=== PATIENT | male | born 1940 | race Caucasian/White ===

== ENCOUNTER 2020-01-24 18:35 | Inpatient (IN) | payer MEDICAID, MEDICARE, SELFPAY ==
[~2020-01-24] VITALS: Ht 185.4 cm; Wt 71.7 kg
[2020-01-24 18:35] VITALS: BP 124/51
--- NOTE | 2020-01-24 18:37 | NUR ---
PT IS A TRANSFER FROM [facility] ([facility] BROUGHT IN FOR ISOLATION OF COVID.
--- NOTE | 2020-01-24 19:05 | NUR ---
79 Y/O MALE BIBA FROM [facility] D/T PT BEING COVID POSITIVE, ASYMPTOMATIC. FACILITY DID NOT HAVE ANY ISOLATION ROOMS, SO THEY STATE THEY CANNOT HOLD PT. RESP EVEN AND UNLABORED. SP02 100% RA. LUNG SOUNDS CLEAR BILAT. AFEBRILE. NO COMPLAINTS AT THIS MOMENT. PT HAS BROCAS APHASIA, BUT ABLE TO COMPREHEND WORDS. NSR. VSS. AAOX4.
--- NOTE | 2020-01-24 19:15 | NUR ---
Pt report given to SIDNEY TAVARES. Transfer of care at this time.
--- NOTE | 2020-01-24 19:16 | NUR ---
recieved report from tavon mayers
--- NOTE | 2020-01-24 20:05 | NUR ---
PT GIVEN SANDWICH AND JUICE
--- NOTE | 2020-01-24 21:14 | NUR ---
PT RESTING AT THIS TIME NO SIGNS OF DISTRESS NOTED
--- NOTE | 2020-01-24 21:16 | NUR ---
MD DELONG AT BEDSIDE TO ASSESS PT
--- NOTE | 2020-01-24 22:00 | NUR ---
DISCHARGE PAPERS GIVEN TO ME BY MD DELONG. CALLED EMERGENCY CONTACT JEWELS AT [phone], SHE LIVES IN [facility] AND IS NOT ABLE TO ASSIST IN TRANSPORT FOR PT. SHE PROVIDED ME HIS COUSINS NUMBER, CALLED YAZMIN AT [phone] AND LEFT [facility]. ADVISED CHARGE NURSE PT HAS NO TRANSPORTATION SHE CONTACTED RN MANAGER TALENT FOR BUS PASS. PT BECAME VERY AGITATED AND REFUSED TO LEAVE WHEN TRYING TO PROVIDE HIM WITH D/C PAPERS AND BUS PASS. MD DELONG WILL NOW ADMIT PT.
[2020-01-24] MEDS ORDERED: DOCUSATE SODIUM 100 MG GELCAP PO PRN (22:40)
[2020-01-24] MEDS ORDERED: ACETAMINOPHEN 325 MG TAB PO PRN (22:40)
[2020-01-24] MEDS ORDERED: MORPHINE SULFATE 2 MG/ML SYR IVP PRN (22:40)
[2020-01-24] MEDS ORDERED: ONDANSETRON 4 MG/2 ML VIAL IM/IVP PRN (22:40)
[2020-01-24] MEDS ORDERED: HYDROcodone/APAP 5/325 MG 1 TAB TAB PO PRN (22:40)
--- NOTE | 2020-01-24 22:49 | NUR ---
Dr. Silva examining patient.
--- NOTE | 2020-01-24 23:20 | NUR ---
PT WILL BE ADMITTED TO [facility]. PER HOUSE INNA ORTIZ PT WILL BE AN ER HOLD FOR THE MEANTIME.
[2020-01-24 23:23] LABS: HEMATOCRIT 24.3 % (36-52); HEMOGLOBIN 7.9 g/dL (12.0-18.0); MEAN CORPUSCULAR HEMOGLOBIN 35 pg (27-31); MEAN CORPUSCULAR HGB CONC 33 g/dL (33-37); MEAN CORPUSCULAR VOLUME 108.5 fL (80-94); PLATELET COUNT (AUTO) 272 K/uL (140-450); RED BLOOD CELL COUNT(AUTO) 2.24 MIL/uL (4.20-6.10); RED CELL DISTRIBUTION WIDTH 16.3 % (11.6-13.7); WHITE BLOOD COUNT (AUTO) 3.5 K/uL (4.8-10.8)
[2020-01-24] MEDS ORDERED: MAG355OR2 PO (23:29)
[2020-01-24] MEDS ORDERED: ATOR10TA PO (23:29)
[2020-01-24] MEDS ORDERED: ARIP5TAB8 PO (23:29)
[2020-01-24] MEDS ORDERED: ESCI10TA PO (23:29)
[2020-01-24] MEDS ORDERED: ATI.5 PO (23:29)
[2020-01-24] MEDS ORDERED: FINA5TAB1 PO (23:29)
[2020-01-24] MEDS ORDERED: ASPI-1884 PO (23:29)
[2020-01-24 23:36] LABS: ANION GAP 10.9 (8-16); CARBON DIOXIDE 29.6 mmol/L (21-32); CHLORIDE 100 mmol/L (98-107); CREATININE 0.8 mg/dL (0.6-1.3); GLUCOSE 98 mg/dL (74-106); POTASSIUM 4.5 mmol/L (3.5-5.1); SODIUM SERUM 136 mmol/L (136-145); UREA NITROGEN, BLOOD 24 mg/dL (7-18)
--- NOTE | 2020-01-24 23:37 | NUR ---
URINE COLLECTED AND TAKEN TO LAB
[2020-01-24 23:41] LABS: LYMPHOCYTES % (MANUAL) 36 % (20-46); MONOCYTES % (MANUAL) 20 % (5-12)
[2020-01-24 23:45] LABS: APPEARANCE,URINE CLEAR (CLEAR); BILIRUBIN,URINE NEGATIVE (NEGATIVE); BLOOD, URINE NEGATIVE (NEGATIVE); COLOR,URINE YELLOW (YELLOW); LEUKOCYTE ESTERASE ,URINE NEGATIVE (NEGATIVE); NITRITE, URINE NEGATIVE (NEGATIVE); UGLUCOSE NEGATIVE (NEGATIVE)
--- NOTE | 2020-01-25 01:59 | NUR ---
PT GIVEN ANOTHER SANDWICH AND JUICE. PT REMAINS ON MONITOR, NO SIGNS OF DISTRESS NOTED, RESPIRATIONS REGULAR, UNLABORED.
--- NOTE | 2020-01-25 02:18 | NUR ---
COVID 19 SWAB DONE AND TAKEN TO LAB
--- NOTE | 2020-01-25 05:14 | NUR ---
PT POINTING TO HIS RIGHT KNEE AND SAYING "OW". ASKED IF HE WAS HAVING PAIN AND HE SAID YES, MEDICATED WITH NORCO PER FLOOR ORDER.
--- NOTE | 2020-01-25 07:25 | NUR ---
RECEIVED REPORT FROM ER NURSE. WITH ADMITTING DX OF ASYMPTOMATIC COVID AND FAILURE TO THRIVE. PT AOX3, WITH EXPRESSIVE APHASIA, ABLE TO COMPREHEND, NO C/O PAIN, NO SOB, RESPIRATIONS ARE EVEN AND UNLABORED. SKIN INTACT. WITH LFA 20G. ISOLATION PRECAUTION OBSERVED. SAFETY PRECAUTIONS IN PLACE. WILL CONTINUE TO MONITOR.
--- NOTE | 2020-01-25 07:28 | NUR ---
Patient will be admitted to care of [facility]. Admited to tele. Will go to room 115. Belongings list completed. Report to brandyn mayers.
[2020-01-25 08:00] VITALS: BP 112/58
[2020-01-25 08:28] LABS: HEMATOCRIT 25.4 % (36-52); HEMOGLOBIN 8.2 g/dL (12.0-18.0); WHITE BLOOD COUNT (AUTO) 3.4 K/uL (4.8-10.8)
--- NOTE | 2020-01-25 08:45 | NUR ---
DUE MEDS GIVEN. TOLERATED PO MEDS WELL
[2020-01-25 08:46] LABS: ANION GAP 10.6 (8-16); CARBON DIOXIDE 30.4 mmol/L (21-32); CHLORIDE 99 mmol/L (98-107); CREATININE 0.8 mg/dL (0.6-1.3); GLUCOSE 86 mg/dL (74-106); SODIUM SERUM 136 mmol/L (136-145); UREA NITROGEN, BLOOD 20 mg/dL (7-18)
[2020-01-25 08:52] LABS: MEAN CORPUSCULAR HEMOGLOBIN 35 pg (27-31); MEAN CORPUSCULAR HGB CONC 32 g/dL (33-37); MEAN CORPUSCULAR VOLUME 109.6 fL (80-94); PHOSPHORUS 3.9 mg/dL (2.5-4.9); PLATELET COUNT (AUTO) 254 K/uL (140-450); RED BLOOD CELL COUNT(AUTO) 2.32 MIL/uL (4.20-6.10); RED CELL DISTRIBUTION WIDTH 16.5 % (11.6-13.7)
[2020-01-25 09:07] LABS: LYMPHOCYTES % (MANUAL) 55 % (20-46); MONOCYTES % (MANUAL) 15 % (5-12)
[2020-01-25] MEDS: ARIPiprazole 10 MG TAB PO SCH (09:41)
[2020-01-25] MEDS: ASPIRIN 81 MG TAB.CHEW PO SCH (09:41)
[2020-01-25] MEDS: ESCITALOPRAM 20 MG TAB PO SCH (09:42)
[2020-01-25] MEDS: FINASTERIDE 5 MG TAB PO SCH (09:42)
--- NOTE | 2020-01-25 11:15 | NUR ---
PT AWAKE IN BED. NO C/O PAIN, NO SOB, RESPIRATIONS ARE EVEN AND UNLABORED, AFEBRILE. WITH EPISODES OF PRESSING CALL LIGHT FOR NO REASON
[2020-01-25 12:00] VITALS: BP 128/64
--- NOTE | 2020-01-25 14:08 | NUR ---
PT AWAKE IN BED WATCHING TV. STILL WITH SEVERAL EPISODES OF PRESSING CALL LIGHT FOR NO REASON. REORIENTATION GIVEN
[2020-01-25] MEDS ORDERED: AZITHROMYCIN 250 MG TAB PO SCH (15:28)
[2020-01-25 16:00] VITALS: BP 142/80
--- NOTE | 2020-01-25 16:30 | NUR ---
FIRST DOSE OF AZITHROMYCIN AND ROCEPHIN GIVEN ORDERED
--- NOTE | 2020-01-25 18:32 | NUR ---
PT AWAKE IN BED WATCHING TV. NO C/O PAIN, NO SOB, AFEBRILE. CALL LIGHT WITHIN REACH. WILL ENDORSE TO NEXT SHIFT FOR CONTINUITY OF CARE
--- NOTE | 2020-01-25 19:22 | NUR ---
RECEIVED PT AAOX1 , EXPRESSIVE APHASIA - HX CVA , CAN FOLLOW COMMANDS , CAN ADDRESS HIS NEED . IV SITE INTACT AND PATENT - ON RA - O2 SAT WNL . SAFETY MEASURES IN PLACE - CALL ASPEN KERN . PLAN OF CARE DISCUSSED AND VERBALIZED FAIR UNDERSTANDING - NEEDS REINFORCEMENT . ON TELE MONITOR , DENIES ANY PAIN WILL CONT. TO MONITOR.
[2020-01-25 20:00] VITALS: BP 130/70
[2020-01-25] MEDS: ATORVASTATIN 20 MG TAB PO SCH (21:00)
--- NOTE | 2020-01-25 22:20 | NUR ---
RESTING ON BED COMFORTABLY NO COMPLAIN MADE .CALL LIGHT WITHIN REACH.
[2020-01-26] VITALS: BP 130/60
--- NOTE | 2020-01-26 | NUR ---
MADE ROUNDS , NO S/SX OF ACUTE DISTRESS NOTED AT THIS TIME . WILL CONT. TO MONITOR.
--- NOTE | 2020-01-26 02:00 | NUR ---
SLEEPING - CHEST RISE AND FALL EQUALLY . WILL CONT. TO MONITOR.
[2020-01-26 04:00] VITALS: BP 125/60
--- NOTE | 2020-01-26 04:00 | NUR ---
MADE ROUNDS , NO S/SX OF ACUTE DISTRESS NOTED AT THIS TIME . CALL LIGHT WITHIN REACH
--- NOTE | 2020-01-26 06:00 | NUR ---
RESTING ON BED COMFORTABLY -ASKING FOR BREAKFAST GIVE SOMETHING TO IT. WILL CONT. TO MONITOR.
--- NOTE | 2020-01-26 07:15 | NUR ---
RECEIVED REPORT FORM NIGHT NURSE FOR CONTINUITY OF CARE, PT IS STABLE, PT HAS LEFT FA 20G SALINE LOCK, PT AMBULATORY, BED IN LOW POSITIONS, ALL NEEDS MET AT THIS TIME, CALL LIGHT WITHIN REACH.
--- NOTE | 2020-01-26 07:25 | NUR ---
ENDORSED TO AM SHIFT - PT - STABLE . PT REFUSED AM LABS . Addendum: 01/26/20 at 0732 by Jacy Armstrong RN INFORM RESIDENT DOCTOR - PT REFUSED AM LABS
[2020-01-26 08:00] VITALS: BP 161/71
[2020-01-26] MEDS: ARIPiprazole 10 MG TAB PO SCH (09:02)
[2020-01-26] MEDS: ASPIRIN 81 MG TAB.CHEW PO SCH (09:02)
[2020-01-26] MEDS: ESCITALOPRAM 20 MG TAB PO SCH (09:03)
[2020-01-26] MEDS: FINASTERIDE 5 MG TAB PO SCH (09:04)
[2020-01-26] MEDS: ZINC SULF 220 MG CAP PO SCH (09:05)
[2020-01-26] MEDS: AZITHROMYCIN 250 MG TAB PO SCH (09:05)
[2020-01-26] MEDS: ASCORBIC ACID 500 MG TAB PO SCH (09:05)
[2020-01-26] MEDS: ENOXAPARIN 40 MG/0.4 ML SYR SUBQ SCH (09:06)
[2020-01-26] MEDS: VITAMIN D 400 IU TAB PO SCH (09:09)
--- NOTE | 2020-01-26 09:22 | NUR ---
ADMINISTERED SCHEDULED MEDICATION, MEDICATION EDUCATION GIVEN, PT HAS BROCA APHASIA, NODDED UNDERSTANDING, PT TOLERATED WELL, PT STABLE, CALL LIGHT WITHIN REACH.
--- NOTE | 2020-01-26 09:29 | NUR ---
PATIENT HAS BEEN SCREENED AND CATEGORIZED HIGH NUTRITION RISK. PATIENT WILL BE SEEN WITHIN 1-2 DAYS OF ADMISSION. 01/26/[address]
--- NOTE | 2020-01-26 11:40 | NUR ---
PT SITTING QUIETLY IN BED, NO SIGNS OF DISTRESS NOTED, RESPIRATIONS ARE EVEN AND UNLABORED ON ROOM AIR, CALL LIGHT WITHIN REACH
[2020-01-26 12:00] VITALS: BP 129/60
--- NOTE | 2020-01-26 13:00 | NUR ---
PT SITTING IN BED, NO SIGNS OF DISTRESS NOTED, RESPIRATIONS ARE EVEN AND UNLABORED ON ROOM AIR, BED IN LOW POSITION, CALL LIGHT WITHIN REACH.
--- NOTE | 2020-01-26 13:43 | NUR ---
01/26/20 RD INITIAL ASSESSMENT COMPLETED PLEASE REFER TO NUTRITION ASSESSMENT UNDER CARE ACTIVITY FOR ESTIMATED NUTRITIONAL NEEDS. 1. RECOMMEND MECHANICAL SOFT CARDIAC DIET TOLERATED 2. RECOMMEND ENSURE BID 3. RD TO FOLLOW-UP 3-5 DAYS, MODERATE RISK REBEKAH ROSA RD
--- NOTE | 2020-01-26 13:49 | NUR ---
DC PLANNIN YRS OLD MALE PATIENT WAS ADMITTED FROM [facility] WITH A DX OF ASYMPTOMATIC COVID-19, FAILURE TO THRIVE. PATIENT HAS A HX OF CVA WITH BROCA'S APHASIA, HYPERTENSION, AGITATION AND DEPRESSION. PT WAS TESTED COVID POSITIVE AT THE FACILITY THEY HAVE NO ISO ROOMS. PT IS HOMELESS PRIOR TO ADMISSION AT [facility]. COVID TEST PENDING. CXR SHOWED PATCHY OPACITIES IN THE LUNG BASES SUGGESTED PNEUMONIA. CONTINUE HOME MEDS. DC PLAN TO TO [facility]. CM TO FOLLOW Addendum: 01/27/20 at 1054 by Fito RODRÍGUEZ [facility] CONTACTED CAROLA - DIRECTOR OF PUBLIC SAFETY FROM [facility] [phone]. PER CAROLA, SHE WILL HAVE NURSING STAFF CALL SW BACK WITH ROOM NUMBER. [facility] WILL FOLLOW UP. Addendum: 01/27/20 at 1154 by Fito Asif [facility] SPOKE WITH KEE - [facility] [phone]. PER KEE, PATIENT WILL BE ACCEPTED BUT ROOM IS PENDING DISCHARGES. [facility] FAXED CLINICAL PACKET TO [phone]. KEE STATED THAT SHE WOULD CONTACT [facility]. [facility] PROVIDED [facility] PHONE NUMBER AND SAÚL TOMAS'S PHONE NUMBER. Addendum: 01/27/20 at 1359 by Alicia Rose CM DC PLANNING: RECEIVED A CALL FROM [facility], SPOKE WITH MAHNAZ CHAPA PT CAN GO TO ROOM 61A # TO GIVE REPORT [phone] WASH HELPER TIME 6PM. Addendum: 01/27/20 at 1430 by Alicia Rose CM DC PLANNING: ARRANGED TRANSPORT WITH [facility] SPOKE WITH YANNA SILVA # [phone] WASH HELPER TIME 6 PM. Addendum: 01/27/20 at 1434 by Alicia Rose CM DC PLANNING: RECEIVED A CALL FROM [facility] WILL WASH HELPER PATIENT AT 6 PM NOTIFIED JENNY TAVARES.
--- NOTE | 2020-01-26 14:26 | NUR ---
CRAB BUTCHER NOTE: [facility] CONTACTED PATIENT'S EMERGENCY CONTACT JEWELS SANABRIA [phone]. [facility] LEFT VOICEMAIL. [facility] FOLLOWED UP AND LEFT ADDITIONAL VM. [facility] WILL FOLLOW UP AT A LATER TIME. Addendum: 01/26/20 at 1433 by Fito RODRÍGUEZ [facility] LEFT VM WILL CRAB BUTCHER NETO Lugo [phone]. Addendum: 01/26/20 at 1554 by Fito RODRÍGUEZ [facility] FAXED CLINICALS TO [facility] AND BOARD: [phone] FOR DISCHARGE PLANNING AFTER SKILLED PLACEMENT. ANGELLA [phone].
[2020-01-26 16:00] VITALS: BP 131/52
--- NOTE | 2020-01-26 16:47 | NUR ---
ADMINISTERED TYLENOL FOR HEADACHE, MEDICATION EDUCATION GIVEN, PT AGITATED, PT UPSET THE CLOCK IN THE ROOM IS NOT WORKING, PT STABLE, CALL LIGHT WITHIN REACH.
[2020-01-26] MEDS: LORazepam 0.5 MG TAB PO PRN ×2 (17:42→23:35)
--- NOTE | 2020-01-26 17:50 | NUR ---
PT AGITATED, TRIED TO GIVE PT ATIVAN, PT REFUSED TO TAKE ORAL MEDICATION, PT WANTED NURSE TO LEAVE ROOM, PT IS STABLE, CALL LIGHT WITHIN REACH.
--- NOTE | 2020-01-26 19:15 | NUR ---
GAVE REPORT TO NIGHT NURSE FOR CONTINUITY OF CARE, PT IS STABLE
--- NOTE | 2020-01-26 19:20 | NUR ---
RECEIVED REPORT FROM AM SHIFT RN. PATIENT IS AWAKE, NO SOB. DENIES PAIN. ON ROOM AIR. TELE MONITOR ATTACHED. NOTED LFA 20G IV SITE. PATIENT IS AMBULATORY. ASSESSMENT DONE. DROPLET ISOLATION OBSERVED AT ALL TIMES. PLAN OF CARE WAS DISCUSSED. CALL LIGHT WITHIN REACH. WILL CONTINUE TO MONITOR.
[2020-01-26 20:00] VITALS: BP 143/75
[2020-01-26] MEDS: ATORVASTATIN 20 MG TAB PO SCH ×2 (21:00→21:46)
--- NOTE | 2020-01-26 21:00 | NUR ---
PATIENT REFUSED LIPITOR 10MG PO. OFFERED 3X BUT STILL REFUSED. INFORMED DR. SANTIAGO. HE SAID IT'S OK. PATIENT VERBALIZED "EAT". WILL GET SANDWICH FOR PATIENT.
--- NOTE | 2020-01-26 21:30 | NUR ---
GAVE PATIENT LUPILLO CASTELLANOS. WILL CONTINUE TO MONITOR.
--- NOTE | 2020-01-26 23:35 | NUR ---
PATIENT IS AGITATED AND WANTS ANOTHER SANDWICH. WE WENT INSIDE THE ROOM WITH DR. SANTIAGO AND TALK TO PATIENT AND I GAVE A SANDWICH TO THE PATIENT. ATIVAN PO PRN GIVEN ORDERED. TOLERATED WELL.
[2020-01-27] VITALS: BP 149/79
--- NOTE | 2020-01-27 | NUR ---
DR. SANTIAGO STILL INSIDE THE PATIENT'S ROOM WHILE I TOOK THE V/S OF THE PATIENT. KEPT PATIENT COMFORTABLE. WILL CONTINUE TO MONITOR
--- NOTE | 2020-01-27 03:00 | NUR ---
PATIENT IS SLEEPING AT THIS TIME. CALL LIGHT WITHIN REACH. WILL CONTINUE TO MONITOR.
[2020-01-27 04:00] VITALS: BP 132/80
--- NOTE | 2020-01-27 07:15 | NUR ---
PATIENT IS STABLE. ENDORSED TO AM SHIFT RN FOR CONTINUITY OF CARE.
--- NOTE | 2020-01-27 07:20 | NUR ---
RECEIVED PATIENT FROM NIGHT NURSE. PATIENT IS AWAKE AND ALERT. RESP EVEN AND UNLABORED ON ROOM AIR. LFA 20 NOTED. PATIENT DENIES OF PAIN OR DISCOMFORT AT THIS TIME. PLAN OF CARE DISCUSSED. PATIENT VERBALIZED UNDERSTANDING. BED IN LOW POSITION, CALL LIGHT WITHIN REACH. WILL CONTINUE WITH CARE.
[2020-01-27 08:00] VITALS: BP 142/91
[2020-01-27] MEDS: AZITHROMYCIN 250 MG TAB PO SCH (08:16)
[2020-01-27] MEDS: VITAMIN D 400 IU TAB PO SCH (08:16)
[2020-01-27] MEDS: ASCORBIC ACID 500 MG TAB PO SCH (08:17)
[2020-01-27] MEDS: ASPIRIN 81 MG TAB.CHEW PO SCH (08:17)
[2020-01-27] MEDS: ZINC SULF 220 MG CAP PO SCH (08:18)
[2020-01-27] MEDS: ARIPiprazole 10 MG TAB PO SCH (08:18)
[2020-01-27] MEDS: ESCITALOPRAM 20 MG TAB PO SCH (08:18)
[2020-01-27] MEDS: FINASTERIDE 5 MG TAB PO SCH (08:19)
[2020-01-27] MEDS: LORazepam 0.5 MG TAB PO PRN (08:19)
--- NOTE | 2020-01-27 08:26 | NUR ---
MORNING ROUTINE PO MEDICATIONS GIVEN. PATIENT TOLERATED WELL. LFA INACCESSIBLE. PATIENT HAS NO IV ACCESS AT THIS TIME. WILL ATTEMPT TO START ANOTHER. PATIENT IS AGITATED, ATIVAN PRN GIVEN. SPEECH IS ALTERED. HX BROCA APHASIA. EXPRESSIVE SPEECH IMPAIRED. PATIENT IS ABLE TO MAKE NEEDS KNOWN THROUGH HAND GESTURES. WILL CONTINUE TO MONITOR.
[2020-01-27] MEDS: ENOXAPARIN 40 MG/0.4 ML SYR SUBQ SCH (08:33)
--- NOTE | 2020-01-27 10:20 | NUR ---
SEVERAL ATTEMPTS MADE TO INSERT IV, UNSUCCESSFUL. WILL CONTINUE TO MAKE ATTEMPTS .
[2020-01-27 12:00] VITALS: BP 143/79
[2020-01-27] MEDS ORDERED: ROC2I IJ (14:45)
[2020-01-27] MEDS ORDERED: AZIT250T3 PO (14:45)
--- NOTE | 2020-01-27 15:10 | NUR ---
SEVERAL ATTEMPTS MADE FROM DIFFERENT NURSES TO START AN IV. IV INSERTION SUCCESSFUL TO LEFT FOREARM 24G. ROCEPHIN STARTED. PATIENT IN STABLE CONDITION.
[2020-01-27 16:00] VITALS: BP 157/68
--- NOTE | 2020-01-27 16:53 | NUR ---
P.T. NOTES D/C FROM P.T.AFTER [place], ENDORSED TO NURSING.
--- NOTE | 2020-01-27 17:20 | NUR ---
DISCHARGE ORDER RECEIVED. PATIENT IS TO BE DISCHARGE TO [facility]. PATIENT DENIES OF PAIN OR DISCOMFORT AT THIS TIME. PATIENT COMPLIED WITH STAFF. [facility] WILL TRAINING PROGRAM MANAGER PATIENT AT 1800. REPORT GIVEN TO MAHNAZ TAVARES AT THE FACILITY. WILL CONTINUE TO MONITOR.
[2020-01-27 17:25] VITALS: BP 157/68
[2020-01-27] MEDS ORDERED: LOV40I SUBQ (17:57)
--- NOTE | 2020-01-27 18:20 | NUR ---
PATIENT LEFT [facility] WITH [facility] TRANSPORT. PATIENT IN STABLE CONDITION. PATIENT LEFT WITH ALL PERSONAL BELONGINGS.
== END 2020-01-27 18:20 | DRG 140 ==
LOC: MED 18:35 → EEVIPCON 18:35 → MTU 22:40
PROVIDERS: ADMIT General Practice; ATTEND General Practice
DX: J44.0 Chronic obstructive pulmonary disease with (acute) lower respiratory infection (principal); J18.9 Pneumonia, unspecified organism; D63.8 Anemia in other chronic diseases classified elsewhere; I69.320 Aphasia following cerebral infarction; F33.9 Major depressive disorder, recurrent, unspecified; I10 Essential (primary) hypertension; D72.819 Decreased white blood cell count, unspecified; F29 Unspecified psychosis not due to a substance or known physiological condition; Z20.828 Contact with and (suspected) exposure to other viral communicable diseases; Z59.0 Homelessness
CPT/HCPCS: 36415; 71045; 80048; 81003; 82728; 83605; 83615; 83735; 84100; 84443; 85025; 85379; 85651; 86140; 87081; 97112; 97116; 97161-GP; 97530; 99285; J0696; J1650; J7030; J7060; Q0092; U0003-CS